=== PATIENT | female | born 1945 | race Caucasian/White ===

== ENCOUNTER → 2018-05-25 | Outpatient (CLI) | payer MEDICARE, OTHER ==
[~2018-05-25] VITALS: Ht 167.6 cm; Wt 95.7 kg
[~2018-05-25] MED LIST: ASP81TEC PO; B.AN1CAP PO; BIEST; CATHETER FLUSH 10 ML SYR IV PRN; LEVO88TA26 PO; MTF500T PO; MTP25TSR PO; MULT-974 PO; RLX60T PO; SIMV40TA2 PO; [UNRECOGNIZED DRUG - OTHER]; [UNRECOGNIZED DRUG - REMARK]; calcium; inderal; inderal PO; vitamin d
[2018-05-25 13:04] VITALS: BP 176/86
[2018-05-25 13:07] VITALS: BP 176/86
--- NOTE | 2018-05-25 22:40 | STRESS TEST ---
DATE OF SERVICE: 05/25/2018 EXERCISE MYOVIEW STRESS TEST REPORT Baseline heart rate is 70. Baseline blood pressure is 129/60. Baseline EKG is sinus rhythm with no ischemic changes. In summary, the patient was injected with 10.23 mCi of technetium-99 Myoview and the resting images were obtained. Then, the patient started exercising with a baseline heart rate, blood pressure and EKG mentioned above. She was able to exercise for 4 minutes and 14 seconds on standard Shawn protocol, achieving maximum heart rate of 146, which is 99% of maximum expected heart rate. With peak exercise level, EKG was showing minimal nondiagnostic changes. Blood pressure was 196/85. During recovery, heart rate and blood pressure returned to baseline. EKG returned to baseline. The resting and stress images were reviewed and compared in the short axis, horizontal long axis, and vertical long axis views. Review of the images showed good radiotracer uptake with no significant ischemia or infarction on SPECT images. SSS is 2, SDS 2, TID value 1.03. On the gated images, the left ventricle appeared to be in normal size with normal contractility. Calculated ejection fraction is 76%. CONCLUSION: 1. Fair exercise tolerance, a total of 4 minutes and 14 seconds on standard Shawn protocol, achieving 99% of maximum expected heart rate. 2. Appropriate heart rate and blood pressure response to exercise returned to baseline during recovery. 3. No ischemia or infarction on SPECT images. 4. Minimal nondiagnostic EKG changes with exercise returned to baseline during recovery. 5. Normal left ventricular size with normal contractility. Calculated ejection fraction is 76%. Job ID: [id number] DocumentID: [id number] Dictated Date: 05/25/2018 17:12:39 Patient Relations Specialist Date: 05/25/2018 22:39:02 Dictated By: LOREN SCHMIDT MD
== END ==
LOC: CARD 09:29
PROVIDERS: ATTEND Physician Assistant
DX: I25.10 Atherosclerotic heart disease of native coronary artery without angina pectoris (principal); I10 Essential (primary) hypertension; R07.9 Chest pain, unspecified; E11.9 Type 2 diabetes mellitus without complications; I07.1 Rheumatic tricuspid insufficiency
CPT/HCPCS: 78452; 93017; 93306

== ENCOUNTER → 2021-06-04 | Outpatient (CLI) | payer MEDICARE, OTHER ==
[2021-06-04 13:04] VITALS: BP 131/73
--- NOTE | 2021-06-04 14:52 | Cardiology Stress Test Report ---
Stress Test Report Date of Procedure/Referring: Date of Procedure: Jun 04, 2021 PCP Loren Sanford MD Admitting Physician Hansel Rodríguez DO Indications: HTN Baseline Heart Rate: 76 Baseline Blood Pressure: Blood Pressure Systolic: 131 Blood Pressure Diastolic: 73 Vital Signs Date Time Temp Pulse Resp B/P (MAP) Pulse Ox O2 Delivery O2 Flow Rate FiO2 06/04/21 13:04 68 16 131/73 (92) 98 Room Air Baseline Vital Signs Vital Signs Date Time Temp Pulse Resp B/P (MAP) Pulse Ox O2 Delivery O2 Flow Rate FiO2 06/04/21 13:04 68 16 131/73 (92) 98 Room Air Baseline EKG: Baseline EKG: NSR Summary: After explaining the procedure and details to the patient, she signed the consent and was brought to the stress nuclear laboratory. Patient exercised on standard Shawn protocol, EKG, heart rate and blood pressure were monitored continuously, resting and stress doses of radio tracer were injected, imaging was acquired and reviewed in the short axis, horizontal long axis and vertical long axis views Patient was able to exercise for a total of 5.30 minutes on Shawn protocol, METs 7.1 Maximum heart rate 126 Maximum blood pressure 164/78 Stress EKG, Minimal nondiagnostic changes Recovery EKG, Return to baseline TID: 1.09 SSS: 2 SDS: 0 EF: 72 Conclusion: 1. Good exercise tolerance for 5 minutes 30 seconds on standard Shawn protocol, 7.1 METS achieving 87% of maximal expected heart rate 2. Appropriate heart rate and blood pressure response to exercise return to baseline during recovery 3. No significant ischemia or infarction on SPECT images 4. Normal left ventricular size, EF 72% LOREN SANFORD MD Jun 04, 2021 14:52
== END ==
LOC: CARD 09:39
PROVIDERS: ATTEND Internal Medicine Cardiovascular Disease
DX: I08.1 Rheumatic disorders of both mitral and tricuspid valves (principal); I10 Essential (primary) hypertension; I25.10 Atherosclerotic heart disease of native coronary artery without angina pectoris
CPT/HCPCS: 78452; 93017; 93306; A9502

== ENCOUNTER → 2022-06-10 | Outpatient (CLI) | payer MEDICARE, OTHER ==
[~2022-06-10] MED LIST changes: -CATHETER FLUSH 10 ML SYR IV PRN; +CATHETER FLUSH 10 ML SYR IVP PRN
[2022-06-10 13:32] VITALS: BP 127/72
--- NOTE | 2022-06-11 07:16 | Cardiology Stress Test Report ---
Stress Test Report Date of Procedure/Referring: Date of Procedure: Jun 11, 2022 PCP Hansel Rodríguez DO Admitting Physician Admitting Physician: Attending Physician: Brook Dexter Indications: HTN Baseline Heart Rate: 80 Baseline Blood Pressure: Blood Pressure Systolic: 127 Blood Pressure Diastolic: 72 Vital Signs Date Time Temp Pulse Resp B/P (MAP) Pulse Ox O2 Delivery O2 Flow Rate FiO2 06/10/22 13:32 80 127/72 (90) Baseline Vital Signs Vital Signs Date Time Temp Pulse Resp B/P (MAP) Pulse Ox O2 Delivery O2 Flow Rate FiO2 06/10/22 13:32 80 127/72 (90) Baseline EKG: Baseline EKG: NSR Summary: After explaining the procedure and details to the patient, she signed the consent and was brought to the stress nuclear laboratory. Patient exercised on standard Shawn protocol, EKG, heart rate and blood pressure were monitored continuously, resting and stress doses of radio tracer were injected, imaging was acquired and reviewed in the short axis, horizontal long axis and vertical long axis views Patient was able to exercise for a total of 4 minutes on Shawn protocol, METs 5.8 Maximum heart rate 126 Maximum blood pressure 170/81 Stress EKG, Minimal nondiagnostic changes Recovery EKG, Return to baseline TID: 0.93 SSS: 3 SDS: 3 EF: 72 Conclusion: 1. Fair exercise tolerance for a total of 4 minutes on standard Shawn protocol, 5.8 METS achieving 88% of maximum expected heart rate 2. Appropriate heart rate and blood pressure response to exercise return to baseline during recovery 3. Minimal nondiagnostic EKG changes with exercise return to baseline during re covery 4. Breast attenuation with typical female pattern. No significant ischemia or infarction on SPECT images 5. Normal left ventricular size, ejection fraction 72% LOREN SCHMIDT MD Jun 11, 2022 07:16
== END ==
LOC: CARD 11:25
PROVIDERS: ATTEND Physician Assistant
DX: I08.3 Combined rheumatic disorders of mitral, aortic and tricuspid valves (principal); I10 Essential (primary) hypertension; I25.10 Atherosclerotic heart disease of native coronary artery without angina pectoris
CPT/HCPCS: 78452; 93017; 93306; A9502